=== PATIENT | male | born 1980 | race African-American/Black ===

== ENCOUNTER 2019-11-03 20:03 | Emergency (ER) | payer OTHER, SELFPAY ==
[2019-11-03 20:11] VITALS: BP 143/85; PULSE 75; RESP 16; TEMP 37.4; O2SAT 97
--- NOTE | 2019-11-03 20:21 | W.ED.GENAD ---
Discharge Plan Disposition Patient Disposition: HOME Condition: Stable Discharge Details Chief Complaint: Orthopedic Clinical Impression: Biceps tendon rupture, traumatic Primary Care Provider: Unknown,Unknown ED Provider: Lennox Kerns Home Meds and New Rx's Prescriptions: No Action No Known Home Meds RF: 0 Discharge Instructions Instructions: Tendon Rupture (ED) Additional Instructions: You seen in the emergency department today for evaluation of what is likely a tendon rupture. You should follow-up with the orthopedic providers here. They would likely contact you tomorrow but if you do not hear from them call [phone]. Explain that you were in the emergency department and need to follow-up for a biceps tendon rupture. Return to the emergency department immediately if you develop any numbness, weakness, or for any other concerning or worsening symptoms at all. Take 400 mg of ibuprofen every 6 hours and ice and elevate it. Medical Decision Making This patient is a healthy 39-year-old male who presents with what is possibly a left partial distal biceps tendon rupture. Patient will need follow-up with orthopedics this week. He is scheduled to leave the state to the following weekend. He will be given the name of the orthopedic surgeon to follow-up with, given return precautions and discharge instructions. HPI I think I injured my biceps tendon. This patient is a 39-year-old male who presents to the emergency department after injuring his left arm. He was lifting weights just prior to arrival, doing a lift when he heard a pop, felt pain in his distal bicep on the left. He has not had weakness but it does hurt to flex at the elbow. No numbness or tingling. No other recent illness. General Date/Time Provider Initiated Documentation: 11/03/19 20:17. Related Data Home Medications Medication Instructions Recorded Confirmed Unknown [No Known Home Meds] 11/03/19 11/03/19 Allergies Allergy/AdvReac Type Severity Reaction Status Date / Time No Known Allergies Allergy Unverified 11/03/19 20:26 General Stated Complaint: Orthopedic ISABEL: 4 Review of Systems Narrative: No fevers, numbness, weakness. No difficulty breathing. [facility] Social History Smoking/Tobacco Use Status: Never Alcohol Intake: never Drug use: Never Substance use type: does not use Do you feel safe at home: Yes Do you feel safe in your relationship?: Yes Exam Narrative Exam Narrative: Gen: no acute distress, alert. Lung: no respiratory distress. Card: RRR. 2+ radial pulses bilaterally. Upper extremity: Distal biceps swelling on the left. No tenderness. Patient can flex at the elbow. 2+ radial pulse. Neuro: speech normal, no gross motor deficits. Psych: alert and oriented to person, place time, normal affect. Skin: warm, intact. Course Vital Signs Vital signs: Vital Signs Temperature 37.4 C 11/03/19 20:11 Pulse 75 11/03/19 20:11 Respiratory Rate 16 11/03/19 20:11 Blood Pressure 143/85 H 11/03/19 20:11 Pulse Oximetry 97 11/03/19 20:11 Temperature 37.4 C 11/03/19 20:11 Temperature Source Skin 11/03/19 20:11 Pulse 75 11/03/19 20:11 Respiratory Rate 16 11/03/19 20:11 Respiratory Effort 11/03/19 20:14 Blood Pressure 143/85 H 11/03/19 20:11 Blood Pressure Position Sitting 11/03/19 20:11 Pulse Oximetry 97 11/03/19 20:11 Oxygen Delivery Method Room Air 11/03/19 20:11 Oxygen Flow Rate 0 11/03/19 20:11 Pain Level 3 11/03/19 20:11
== END 2019-11-03 20:40 | disposition home or self-care (01) ==
LOC: ER 20:43
PROVIDERS: Emergency Provider Emergency Medicine
DX: M66.829 Spontaneous rupture of other tendons, unspecified upper arm (principal); X50.9XXA Other and unspecified overexertion or strenuous movements or postures, initial encounter; Y93.83 Activity, rough housing and horseplay
CPT/HCPCS: 99282